=== PATIENT | female | born 1940 | race Caucasian/White ===

== ENCOUNTER 2016-12-12 12:35 | Emergency (ER) | payer OTHER, MEDICARE ==
[2016-12-12 12:39] VITALS: TEMP 37
[2016-12-12] MEDS ORDERED: HYDROCODONE/ACETAMOPHEN 5/325MG TAB PO STA (13:07)
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
[2016-12-12] MEDS ORDERED: SULF800T23 PO (13:34)
[2016-12-12] MEDS ORDERED: EZET10TA47 PO (13:34)
[2016-12-12] MEDS ORDERED: AMLO-110 PO (13:34)
[2016-12-12] MEDS ORDERED: TRAM-10 PO (13:34)
[2016-12-12] MEDS ORDERED: WARF5TAB7 PO (13:34)
[2016-12-12] MEDS ORDERED: METO25TA56 PO (13:34)
[2016-12-12] MEDS ORDERED: ZOLP10TA PO (13:34)
[2016-12-12] MEDS ORDERED: [UNRECOGNIZED DRUG - CODE] (13:34)
[2016-12-12] MEDS ORDERED: LISI-725 PO (13:34)
[2016-12-12] MEDS ORDERED: PRAV20TA PO (13:34)
[2016-12-12] MEDS ORDERED: PARO1TAB27 PO (13:34)
[2016-12-12] MEDS ORDERED: FENO1TAB25 PO (13:34)
--- NOTE | 2016-12-12 14:00 | DIAGNOSTIC IMAGING REPORT ---
LEFT KNEE 1 OR 2 VIEWS ROUTINE CLINICAL HISTORY: left knee pain, fall trauma. Pain. COMPARISON: None. DISCUSSION: Considerable degenerative change all major joint compartments. Mild chondrocalcinosis. No evidence for fracture. Mild osteophytic changes throughout. There is no evidence for soft tissue swelling. IMPRESSION: Significant degenerative change. Chondrocalcinosis. No acute bony abnormality. The above report was generated using voice recognition software. It may contain grammatical, syntax or spelling errors. Electronically signed by: Carlos Orozco M.D. 12/12/2016 1:59 PM Dictated Date/Time: 12/12/2016 1:58 PM
--- NOTE | 2016-12-12 14:26 | DIAGNOSTIC IMAGING REPORT ---
LEFT VENOUS DOPP LOWER EXT UNILAT CLINICAL HISTORY: left leg pain, fall, prior DVT pain. Edema. TECHNIQUE: Venous Doppler COMPARISON STUDY: None FINDINGS: No evidence of deep venous thrombosis. 6 x 5 x 2 cm complex region anterior to the knee suggesting posttraumatic hematoma. IMPRESSION: 1. Study is negative for deep venous thrombosis. 2. Post traumatic hematoma anterior to the knee. The above report was generated using voice recognition software. It may contain grammatical, syntax or spelling errors. Electronically signed by: Carlos Orozco M.D. 12/12/2016 2:25 PM Dictated Date/Time: 12/12/2016 2:24 PM
[2016-12-12] MEDS ORDERED: HYDR-5688 PO ×2 (15:02→15:25)
--- NOTE | 2016-12-12 15:38 | Pharmacy Progress Note ---
ED Pharmacist Progress Note Date of Service: Dec 12, 2016. [place] prescription originally sent to [facility], who called the patient noting they did not have it in stock. Original prescription canceled in [employer], but this data does not get electronically transmitted. Therefore at the request of Dr. Membreno, I called then and provided verbal consent to cancel their order. New prescription transmitted to [facility] by Dr. Membreno per patient request.
[2016-12-12 15:45] VITALS: BP 154/72; PULSE 76; O2SAT 94
== END 2016-12-12 15:45 | disposition home or self-care (01) ==
LOC: C.EDB 12:38 → C.EDC 15:45
DX: S80.01XA Contusion of right knee, initial encounter (principal); S80.02XA Contusion of left knee, initial encounter; W10.9XXA Fall (on) (from) unspecified stairs and steps, initial encounter; G89.29 Other chronic pain; M17.10 Unilateral primary osteoarthritis, unspecified knee; Z86.718 Personal history of other venous thrombosis and embolism; E78.5 Hyperlipidemia, unspecified; I10 Essential (primary) hypertension; M32.9 Systemic lupus erythematosus, unspecified; Z79.01 Long term (current) use of anticoagulants; Z79.899 Other long term (current) drug therapy